=== PATIENT | female | born 2000 | race African-American/Black ===

== ENCOUNTER 2024-08-14 00:27 | Emergency (ER) | payer BC ==
[2024-08-14 02:47] LABS: Specific Gravity 1.011 (1.005-1.030); Sqamous Epithelial <5 /HPF (None Seen); Urine Bacteria <20 /HPF (<20); Urine Bilirubin NEGATIVE (Negative); Urine Blood Negative (Negative); Urine Clarity Extremely Turbid (Clear); Urine Color Light-Yellow (Yellow); Urine Culture Reflex Order REFLEXED; Urine Glucose NEGATIVE (Negative); Urine Ketones NEGATIVE (Negative); Urine Microscopic Reflex YN ORDER UMIC; Urine Mucus Slight /HPF (None Seen); Urine Nitrite 1+ (Negative); Urine Protein NEGATIVE (Negative); Urine RBC <5 /HPF (None Seen); Urine Urobilinogen Normal (Normal)
[2024-08-14 02:48] LABS: Specific Gravity 1.011 (1.005-1.030)
[2024-08-14 02:53] LABS: Absolute Lymphocytes (CBC) 1.7 K/uL (0.7-4.9); Absolute Monocytes 0.3 K/uL (0.1-1.3); Absolute Neutrophil 1.1 K/uL (1.8-8.0); Basophils % 0.8 % (0-1.3); Eosinophils % 0.3 % (0-4.4); Hematocrit 38.4 % (36.0-45.0); Hemoglobin 12.8 g/dL (12.0-15.0); Lymphocytes % 53.7 % (15.3-44.8); MCH 27.9 pg (27.0-35.0); MCHC 33.5 g/dL (32.0-36.0); MCV 83.5 fL (80-100); MPV 8.7 fL (7.6-11.3); Neutrophils % 34.2 % (41.7-73.7); Nucleated Red Blood Cells % 0.2 % (0-0); Platelets 190 thou/uL (152-406); RBC Red Blood Cell Count 4.59 M/uL (3.86-4.86); Red Cell Distribution Width 13.8 % (12.1-15.2)
[2024-08-14 02:54] LABS: PT Prothrombin Time 14.1 SECONDS (10-13.0); PTT, Activated Partial Thromb 30.6 SECONDS (27.2-37.4); Protime INR 1.25
[2024-08-14] MEDS ORDERED: THIAMINE 200 MG/2 ML INJ ONE (02:57)
[2024-08-14] MEDS ORDERED: ONDANSETRON 4 MG/2 ML VIAL ONE (02:57)
[2024-08-14] MEDS ORDERED: FAMOTIDINE 20 MG/2 ML VIAL IV ONE (02:58)
[2024-08-14] MEDS ORDERED: MULTIVITAMINS 10 ML VIAL (INJ) IV ONE (02:58)
[2024-08-14] MEDS ORDERED: FOLIC ACID 5 MG/ML VIAL ONE (02:58)
[2024-08-14] MEDS ORDERED: NA CHLORIDE 0.9% 1,000 ML ONE (02:59)
[2024-08-14 03:11] LABS: ALT/SGPT 18 U/L (13-56); AST/SGOT 13 U/L (15-37); Albumin 3.5 g/dL (3.4-5.0); Albumin/Globulin Ratio 0.9 (1.1-1.8); Alkaline Phosphatase 111 U/L (45-117); Anion Gap 10.7 mEq/L (5.0-15.0); BUN Blood Urea Nitrogen 6 mg/dL (7-18); Bicarbonate 27 mEq/L (21-32); Bilirubin Total 0.3 mg/dL (0.2-1.0); Globulin 4.1 g/dL (2.3-3.5); Glomerular Filtration Rate 113 ml/min (=/>90); Glucose Level 83 mg/dL (74-106); Potassium 4.7 mEq/L (3.5-5.1); Protein, Total 7.6 g/dL (6.4-8.2); Sodium Level 136 mEq/L (136-145)
[2024-08-14 03:11] LABS: Barbiturates NEGATIVE (NEGATIVE); Benzodiazepines NEGATIVE (NEGATIVE); Cocaine NEGATIVE (NEGATIVE); METHAMPHETAM NEGATIVE (NEGATIVE); Methadone NEGATIVE (NEGATIVE); Opiates NEGATIVE (NEGATIVE); Phencyclidine NEGATIVE (NEGATIVE); THC Cannibis NEGATIVE (NEGATIVE)
[2024-08-14 03:13] LABS: Bilirubin Direct < 0.2 mg/dL (0-0.2); Bilirubin Indirect, Calculated 0.1 mg/dL (0.2-0.8)
[2024-08-14] MEDS ORDERED: NA CHLORIDE 0.9% 50 ML ONE (04:15)
[2024-08-14] MEDS ORDERED: LORAZEPAM 1 MG TABLET ONE (04:15)
[2024-08-14] MEDS ORDERED: CEFTRIAXONE 1000 MG/VIAL ONE (04:15)
[2024-08-14 04:22] LABS: Differential Total Cells Count 100; Lymphocytes 57 % (15-42); Monocytes 7 % (0-10); Reactive Lymphocytes 5 %; Segmented Neutrophils 31 % (40-80)
[2024-08-14 04:23] LABS: Blood Morphology Comment NOT SEEN (NOT SEEN); Platelet Estimate ADEQ
--- NOTE | 2024-08-14 05:40 | EDPHYS ---
[facility] Name: Tammy Sandoval Age: 24 yrs Sex: Female : 2000 Arrival Date: 08/14/2024 Time: 00:27 Bed 7 Private MD: ED Physician Luca Santoyo HPI: 08/14 01:20 This 24 yrs old Black Female presents to ER via Ambulatory with complaints of Alcohol cp Withdrawal. 01:20 The patient presents to the emergency department with a history of substance abuse, cp Type: wine, liquor, daily, with a recent binge. Onset: The symptoms/episode began/occurred for past several weeks. Past psychiatric history: Prior diagnosis: addiction history, alcohol, depression. 01:20 Patient admits to consuming 2 glasses wine last night to help with withdrawal symptoms cp of tremor and brain feeling of being "zapped". 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 - Infectious Disease History:: Denies. - Social history:: Smoking status: Patient denies any tobacco usage or history of. Patient uses alcohol, on a daily basis. ROS: 01:25 Constitutional: Negative for body aches, chills, fever, poor PO intake, cp 01:25 Eyes: Negative for injury, pain, redness, and discharge, cp 01:25 Cardiovascular: Negative for chest pain, edema, palpitations, :25 Respiratory: Negative for cough, shortness of breath, wheezing, 01:25 Abdomen/GI: Negative for abdominal pain, vomiting, diarrhea, constipation, 01:25 Neuro: Positive for tremor, Negative for altered mental status, dizziness, headache, seizure activity, weakness, 01:25 Psych: Positive for alcohol dependence, Negative for auditory hallucinations, visual hallucinations, homicidal ideation, suicide gesture, suicidal ideation, 01:25 All other systems are negative, Exam: 01:30 Constitutional: The patient appears in no acute distress, alert, awake, cp non-diaphoretic, non-toxic, well developed, well nourished, 01:30 Head/Face: Normocephalic, atraumatic. cp 01:30 Eyes: Periorbital structures: appear normal, Pupils: equal, round, and reactive to light and accomodation, Extraocular movements: intact throughout, Conjunctiva: normal, no exudate, no injection, Sclera: no appreciated abnormality, Lids and lashes: appear normal, bilaterally, 01:30 ENT: External ear(s): are unremarkable, Nose: is normal, Mouth: Lips: moist, Oral mucosa: moist, Posterior pharynx: Airway: no evidence of obstruction, patent, Voice: is normal, 01:30 Neck: ROM/movement: is normal, is supple, without pain, no range of motions limitations, 01:30 Chest/axilla: Inspection: normal, :30 Cardiovascular: Rate: bradycardic, Rhythm: irregular, Edema: is not appreciated, JVD: is not appreciated, :30 Respiratory: the patient does not display signs of respiratory distress, Respirations: normal, no use of accessory muscles, no retractions, labored breathing, is not present, Breath sounds: are clear throughout, no decreased breath sounds, no stridor, no wheezing, 01:30 Abdomen/GI: Exam negative for discomfort, distension, guarding, Inspection: abdomen appears normal, 01:30 Neuro: Orientation: to person, place \\T\\ time. Mentation: is normal, Motor: moves all fours, strength is normal, Gait: is steady, at a normal pace, without difficulty, Vital Signs: 01:08 BP 122 / 84; Pulse 55; Resp 16; Temp 98.4; Pulse Ox 100% on R/A; Weight 72.57 kg; al5 Height 5 ft. 3 in. ; 02:49 BP 122 / 84; Pulse 55; Resp 16; Pulse Ox 100% ; al5 03:30 BP 118 / 88; Pulse 62; Resp 16; Pulse Ox 100% ; al5 04:00 BP 116 / 79; Pulse 57; Resp 17; Pulse Ox 100% ; al5 05:32 BP 114 / 80; Pulse 53; Resp 16; Pulse Ox 98% ; al5 05:45 BP 110 / 85; Pulse 54; Resp 13; Pulse Ox 99% ; al5 01:08 Body Mass Index 28.34 (72.57 kg, 160.02 cm) al5 MDM: 00:59 Medical Screening Exam initiated tomi 03:35 Data reviewed: vital signs, nurses notes, lab test result(s), EKG, and as a result, I cp will discharge patient. 03:35 Differential diagnosis: drug withdrawal. acute psychotic break, depression, psychosis cp secondary to non-compliance. I considered the following discharge prescriptions or medication management in the emergency department Medications were administered in the Emergency Department. See MAR. Independent interpretation of the following test(s) in the Emergency Department EKG: See my EKG interpretation above. Counseling: I had a detailed discussion with the patient and/or guardian regarding the historical points, exam findings, and any diagnostic results supporting the discharge/admit diagnosis, lab results, the need for outpatient follow up, for definitive care, a psychiatrist, to return to the emergency department if symptoms worsen or persist or if there are any questions or concerns that arise at home. Response to treatment: the patient's symptoms have mildly improved after treatment, and as a result, I will discharge patient. 08/14 01:18 Order name: Acetaminophen; Complete Time: 03:23 08/14 03:23 Interpretation: Reviewed. 08/14 01:18 Order name: Basic Metabolic Panel; Complete Time: 03:23 08/14 03:23 Interpretation: Normal except: BUN 6. 08/14 01:18 Order name: CBC with Diff; Complete Time: 05:38 08/14 03:24 Interpretation: Normal except: WBC 3.10; PAULETTE% 34.2; LYM% 53.7; NEUT A 1.1. 08/14 01:18 Order name: ETOH Level; Complete Time: 03:23 08/14 03:24 Interpretation: Abnormal: ETOH 72. 08/14 01:18 Order name: Hepatic Function; Complete Time: 03:23 08/14 01:18 Order name: PT-INR; Complete Time: 03:05 08/14 03:05 Interpretation: Reviewed. 08/14 01:18 Order name: Test, Urine; Complete Time: 03:05 08/14 01:18 Order name: Ptt, Activated; Complete Time: 03:05 08/14 01:18 Order name: Salicylate; Complete Time: 03:23 08/14 01:18 Order name: Urinalysis w/ reflexes; Complete Time: 03:05 08/14 03:05 Interpretation: Normal except: [facility] Extremely Turbid; UPH 8.0; UNIT 1+; UESTR 75; [facility] cp 10-20. 08/14 01:18 Order name: Urine Drug Screen; Complete Time: 03:23 cp 08/14 02:51 Order name: Urine Culture EDMS 08/14 03:12 Order name: Manual Differential; Complete Time: 05:38 EDMS 08/14 01:18 Order name: EKG; Complete Time: 01:19 cp 08/14 01:18 Order name: EKG - Nurse/Tech; Complete Time: 02:10 cp 08/14 01:18 Order name: IV Saline Lock; Complete Time: 02:27 cp 08/14 01:18 Order name: Labs collected and sent; Complete Time: 02:27 cp Administered Medications: 03:14 Drug: Ondansetron IVP 4 mg IVP once; over 2 minutes Route: IVP; Site: right antecubital;ha1 04:21 Follow up: Response: No adverse reaction al5 03:16 Drug: Banana Bag - (Multivitamin IV 1 amp, NS 0.9% IV 1000 ml, Thiamine IV 100 mg, ha1 foLIC Acid IVPB 1 mg) IV at 250 ml/hr once Route: IV; Rate: 250 ml/hr; Site: right antecubital; 05:50 Follow up: Response: No adverse reaction; IV Status: Completed infusion; IV Intake: al5 1000ml 03:16 Drug: Famotidine IVP 20 mg IVP once; dilute with 10 mL 0.9% NaCl; give over 2 minutes ha1 Route: IVP; Site: right antecubital; 04:21 Follow up: Response: No adverse reaction al5 04:20 Drug: Rocephin IV 1 grams IV at calculated rate once; Given slow IV push per pharmacy al5 instructions Route: IV; Rate: calculated rate; Site: right antecubital; 05:30 Follow up: Response: No adverse reaction; IV Status: Completed infusion; IV Intake: [id number] 04:21 Drug: LORazepam PO 1 mg PO once Route: PO; al5 05:50 Follow up: Response: No adverse reaction; RASS: Alert and Calm (0) al5 Disposition Summary: 08/14/24 05:39 Discharge Ordered Notes: Location: Home cp Problem: new cp Symptoms: have improved cp Condition: Stable cp Diagnosis - Alcohol dependence cp - UTI/ Urinary tract infection, site not specified cp Followup: cp - With: Private Physician - When: 2 - 3 days - Reason: Worsening of condition Discharge Instructions: - Discharge Summary Sheet cp - Alcohol Intoxication cp - Alcohol Withdrawal Syndrome cp - Alcohol Use Disorder cp - Urinary Tract Infection, Adult cp - Alcohol Abuse and Nutrition cp - Alcohol Abuse and Dependence Information, Adult cp Forms: - Medication Reconciliation Form cp - Antibiotic Education cp - Prescription Opioid Use cp - Patient Portal Instructions cp - Leadership Thank You Letter cp Prescriptions: - Ibuprofen 800 mg Oral Tablet - take 1 tablet ORAL route every 8 hours As needed take with food; 30 tablet; cp Refills: 0, Product Selection Permitted - cefpodoxime 200 mg Oral tablet - take 1 tablet ORAL route every 12 hours for 7 days with food; 14 tablet; cp Refills: 0, Product Selection Permitted - ondansetron 8 mg Oral Tablet,disintegrating - take 1 tablet ORAL route every 12 hours; 10 tablet; Refills: 0, Product cp Selection Permitted Signatures: Dispatcher [employer] EDMS Luca Santoyo MD MD cha Page, Corey, PA PA cp Beatriz Morales, RN RN ha1 Karey Fitch RN RN al5 Corrections: (The following items were deleted from the chart) 01: 01:19 ACETAMINOPHEN+C.LAB.BRZ ordered. EDMS EDMS : 01:19 BASIC METABOLIC PANEL+C.LAB.BRZ ordered. EDMS EDMS : 01:19 CBC+H.LAB.BRZ ordered. EDMS EDMS : 01:19 ETHANOL+C.LAB.BRZ ordered. EDMS EDMS :19 01:19 HEPATIC FUNCTION+C.LAB.BRZ ordered. EDMS EDMS :19 01:19 PROTIME (+INR)+COAG.LAB.BRZ ordered. EDMS EDMS :19 01:19 Test, Urine+UC.LAB.BRZ ordered. EDMS EDMS :19 01:19 PTT, ACTIVATED+COAG.LAB.BRZ ordered. EDMS EDMS :19 01:19 SALICYLATE+C.LAB.BRZ ordered. EDMS EDMS :19 01:19 Urinalysis+U.LAB.BRZ ordered. EDMS EDMS 01:19 01:19 URINE DRUG SCREEN+UC.LAB.BRZ ordered. EDMS EDMS 03:34 01:18 Suicide Screening ([place]) ordered. cp cp
--- NOTE | 2024-08-14 05:40 | ER ---
Nurse's Notes [facility] Name: Tammy Sandoval Age: 24 yrs Sex: Female : 2000 Arrival Date: 08/14/2024 Time: 00:27 Bed 7 Private MD: Diagnosis: Alcohol dependence;UTI/ Urinary tract infection, site not specified Presentation: 08/14 01:08 Chief complaint: Patient states: has been having tremors and "brain zaps' to where her al5 brain feels like it has a heart beat starting today. last drink was 2 hours ago to stop the tremors. Coronavirus screen: At this time, the client does not indicate any symptoms associated with coronavirus-19. Ebola Screen: No symptoms or risks identified at this time. Initial Sepsis Screen: Does the patient meet any 2 criteria? No. Patient's initial sepsis screen is negative. Does the patient have a suspected source of infection? No. Patient's initial sepsis screen is negative. Risk Assessment: Do you want to hurt yourself or someone else? Patient reports no desire to harm self or others. Onset of symptoms was August 13, 2024. 01:08 Method Of Arrival: Ambulatory al5 01:08 Acuity: STANISLAV 3 al5 Triage Assessment: 01:10 General: Appears in no apparent distress. comfortable, Behavior is calm, cooperative. al5 Pain: Complains of pain in head. EENT: No signs and/or symptoms were reported regarding the EENT system. Neuro: Level of Consciousness is awake, alert, obeys commands, Oriented to person, place, time, situation. Cardiovascular: Capillary refill < 3 seconds Patient's skin is warm and dry. Respiratory: Airway is patent Respiratory effort is even, unlabored, Respiratory pattern is regular, symmetrical. GI: Abdomen is flat, non-distended, Reports nausea. : No signs and/or symptoms were reported regarding the genitourinary system. Derm: Skin is intact, is healthy with good turgor, Skin is pink, warm \\T\\ dry. normal. Musculoskeletal: No signs and/or symptoms reported regarding the musculoskeletal system. 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 - Infectious Disease History:: Denies. - Social history:: Smoking status: Patient denies any tobacco usage or history of. Patient uses alcohol, on a daily basis. Screenin:11 [facility] ED Fall Risk Assessment (Adult) History of falling in the last 3 months, al5 including since admission No falls in past 3 months (0 pts) Confusion or Disorientation No (0 pts) Intoxicated or Sedated No (0 pts) Impaired Gait No (0 pts) Mobility Assist Device Used No (0 pt) Altered Elimination No (0 pt) Score/Fall Risk Level 0 - 2 = Low Risk Oriented to surroundings, Maintained a safe environment, Hourly rounding (assess needs \\T\\ fall precautionary measures) done. Abuse screen: Denies threats or abuse. Denies injuries from another. Nutritional screening: No deficits noted. Tuberculosis screening: No symptoms or risk factors identified. Assessment: 01:11 Reassessment: see triage assessment. al5 02:49 Reassessment: Patient appears in no apparent distress at this time. No changes from al5 previously documented assessment. Patient and/or family updated on plan of care and expected duration. Pain level reassessed. Patient is alert, oriented x 3, equal unlabored respirations, skin warm/dry/pink. Vital Signs: 01:08 BP 122 / 84; Pulse 55; Resp 16; Temp 98.4; Pulse Ox 100% on R/A; Weight 72.57 kg; al5 Height 5 ft. 3 in. ; 02:49 BP 122 / 84; Pulse 55; Resp 16; Pulse Ox 100% ; al5 03:30 BP 118 / 88; Pulse 62; Resp 16; Pulse Ox 100% ; al5 04:00 BP 116 / 79; Pulse 57; Resp 17; Pulse Ox 100% ; al5 05:32 BP 114 / 80; Pulse 53; Resp 16; Pulse Ox 98% ; al5 05:45 BP 110 / 85; Pulse 54; Resp 13; Pulse Ox 99% ; al5 01:08 Body Mass Index 28.34 (72.57 kg, 160.02 cm) al5 ED Course: 00:31 Patient arrived in ED. im 00:56 Luca Roy PA is PHCP. cp 00:56 Luca Santoyo MD is Attending Physician. cp 01:08 Karey Fitch RN is Primary Nurse. al5 01:09 Triage completed. al5 01:11 Arm band placed on right wrist. Patient placed in the treatment room, in view of staff al5 members, on pulse oximetry. 01:11 Patient has correct armband on for positive identification. Placed in gown. Bed in low al5 position. Call light in reach. Side rails up X 1. Provided Education on: plan of care. 01:12 No provider procedures requiring assistance completed. al5 02:10 EKG done, by biotechnician. af3 02:27 Inserted saline lock: 20 gauge in right antecubital area, using aseptic technique. af3 Blood collected. Flushed with 10 mL NS. 05:50 IV discontinued, intact, bleeding controlled, No redness/swelling at site. Pressure al5 dressing applied. Administered Medications: 03:14 Drug: Ondansetron IVP 4 mg IVP once; over 2 minutes Route: IVP; Site: right antecubital;ha1 04:21 Follow up: Response: No adverse reaction al5 03:16 Drug: Banana Bag - (Multivitamin IV 1 amp, NS 0.9% IV 1000 ml, Thiamine IV 100 mg, ha1 foLIC Acid IVPB 1 mg) IV at 250 ml/hr once Route: IV; Rate: 250 ml/hr; Site: right antecubital; 05:50 Follow up: Response: No adverse reaction; IV Status: Completed infusion; IV Intake: al5 1000ml 03:16 Drug: Famotidine IVP 20 mg IVP once; dilute with 10 mL 0.9% NaCl; give over 2 minutes ha1 Route: IVP; Site: right antecubital; 04:21 Follow up: Response: No adverse reaction al5 04:20 Drug: Rocephin IV 1 grams IV at calculated rate once; Given slow IV push per pharmacy al5 instructions Route: IV; Rate: calculated rate; Site: right antecubital; 05:30 Follow up: Response: No adverse reaction; IV Status: Completed infusion; IV Intake: [id number] 04:21 Drug: LORazepam PO 1 mg PO once Route: PO; al5 05:50 Follow up: Response: No adverse reaction; RASS: Alert and Calm (0) al5 Medication: 01:11 VIS not applicable for this client. al5 Intake: 05:30 IV: 50ml; Total: 50ml. al5 05:50 IV: 1000ml; Total: 1050ml. al5 Outcome: 05:39 Discharge ordered by . cp 05:50 Discharged to home ambulatory, with significant other, al5 05:50 Discharge instructions given to patient, Instructed on discharge instructions, follow up and referral plans. medication usage, Demonstrated understanding of instructions, follow-up care, medications, Prescriptions given X 2, 05:50 Condition: good al5 06:32 Patient left the ED. al5 Signatures: Luca Roy PA PA cp Ayala, Heidy, RN RN ha1 [place] Amanda RN RN al5 Lexi Mccarthy
[2024-08-14 06:57] VITALS: TEMP 98.4
[2024-08-14 07:02] VITALS: BP 110/85; O2SAT 99
== END 2024-08-14 06:32 | disposition home or self-care (01) ==
LOC: ER 00:27
DX: F10.20 Alcohol dependence, uncomplicated (principal); N39.0 Urinary tract infection, site not specified
CPT/HCPCS: 93005; 87088; 85025; 81001; 87086; 80048; 36415; 81025; 85610; 80076; 85730; 80307; 80143; 80179; 82077; J3411; J2405; J7030; J0696